=== PATIENT | female | born 1980 | race Caucasian/White ===

== ENCOUNTER 2022-10-23 16:02 | Emergency (ER) | payer BC ==
[2022-10-23] MEDS ORDERED: Acetaminophen 500 MG TAB ONE (20:18)
[2022-10-23 20:28] LABS: #Basophils 0.1 10x3/uL (0.0-0.2); #Eosinphils 0.1 10x3/uL (0.0-0.5); #Monocytes 0.4 10x3/uL (0.0-1.1); #Neutrophils 7.4 10x3/uL (1.5-8.4); %Basophils 0.5 % (0.0-2.0); %Eosinophils 0.7 % (0.0-6.0); %Lymphocytes 24.2 % (18.0-47.0); %Monocytes 3.8 % (0.0-10.0); %Neutrophils 70.4 % (40.0-75.0); Hematocrit 37.2 % (34.9-44.5); Hemoglobin 12.5 g/dL (12.0-15.5); Mean Corpuscular HGB CONC 33.6 g/dL (32.0-36.0); Mean Corpuscular Volume 89.2 fl (81.6-98.3); Mean Platelet Volume 9.2 fl (7.4-10.4); Platelet Count 270 10x3/uL (150-450); RBC Distribution Width 12.6 % (11.5-14.5); Red Blood Cell (RBC) Count 4.17 10x6/uL (3.90-5.03); White Blood Cell (WBC) Count 10.5 10x3/uL (3.5-10.5)
[2022-10-23] MEDS ORDERED: Lidocaine 4% Patch TD SCH (20:30)
[2022-10-23 20:34] LABS: BHCG - Serum Negative (NEGATIVE); Pregs Control Background? CLEAR/WHITE (CLR/WHITE); Pregs Control Bar Appear? YES (CONTROL BAR)
[2022-10-23 20:40] LABS: ALT (SGPT) 35 U/L (8-55); AST (SGOT) 19 U/L (5-34); Albumin 4.2 g/dL (3.5-5.0); Alkaline Phosphatase 53 U/L (40-110); Anion Gap 15 mmol/L (10-20); BUN (Urea Nitrogen) 16 mg/dL (7.0-18.7); Bilirubin, Total 0.3 mg/dL (0.2-1.2); CK (CPK) 45 U/L (29-168); Calc. Creatinine Clearance 0 mL/min (70-130); Calcium 9.2 mg/dL (7.8-10.44); Carbon Dioxide 28 mmol/L (22-29); Chloride 101 mmol/L (98-107); Estimated GFR 106; Globulin 2.8 g/dL (2.4-3.5); Glucose 130 mg/dL (70-105); Potassium 3.7 mmol/L (3.5-5.1); Sodium 140 mmol/L (136-145)
[2022-10-23 22:25] LABS: Bilirubin Neg (Negative); Blood, Urine Negative (Negative); Clarity Clear (Clear); Glucose, Urine (Dipstick) Normal (Negative); Ketone, Urine Negative (Negative); Leukocyte Negative (Negative); Nitrite Negative (Negative); Protein, Urine (Dipstick) Negative (Neg-Trace); Urobilinogen Normal mg/dL (Less than 2)
[2022-10-23 22:34] LABS: Bacteria/HPF None Seen HPF (None Seen); CAUTI Indications for Culture Pelvic or flank pain; RBC/HPF None Seen HPF (0-3); Squamous Epithelial 0-3 HPF (0-3); WBC/HPF None Seen HPF (0-3)
[2022-10-23 22:36] LABS: Urine Culture Reflex No No
[2022-10-23] MEDS ORDERED: fentaNYL 50 mcg/mL 1 mL Vial ONE (22:45)
== END 2022-10-23 22:03 | disposition home or self-care (01) ==
LOC: CSHERS 16:02
DX: M54.31 Sciatica, right side (principal); E78.5 Hyperlipidemia, unspecified; I10 Essential (primary) hypertension; F17.210 Nicotine dependence, cigarettes, uncomplicated
CPT/HCPCS: 36415; 80053; 81001; 82550; 84703; 85025; 96374; J3010

== ENCOUNTER 2022-11-19 08:12 | Outpatient (CLI) | payer BC | END 2022-11-19 08:13 | disposition home or self-care (01) | LOC: CSHLAB 08:12 | PROVIDERS: ATTEND Obstetrics & Gynecology | DX: Z01.818 Encounter for other preprocedural examination (principal) | CPT/HCPCS: 80048; 84703; 85027; 86850; 86900; 86901; 93005; 93010 ==

== ENCOUNTER 2022-11-21 08:33 | Day surgery (SDC) | payer BC ==
[2022-11-19 09:08] VITALS: BMI 31.8
[2022-11-19 10:35] LABS: BHCG - Serum Negative (NEGATIVE); Pregs Control Background? CLEAR/WHITE (CLR/WHITE); Pregs Control Bar Appear? YES (CONTROL BAR)
[2022-11-19 10:39] LABS: Anion Gap 11 mmol/L (10-20); BUN (Urea Nitrogen) 17 mg/dL (7.0-18.7); Calc. Creatinine Clearance 0 mL/min (70-130); Calcium 9.2 mg/dL (7.8-10.44); Carbon Dioxide 29 mmol/L (22-29); Chloride 104 mmol/L (98-107); Estimated GFR 108; Glucose 98 mg/dL (70-105); Potassium 3.9 mmol/L (3.5-5.1); Sodium 140 mmol/L (136-145)
[2022-11-19 10:41] LABS: Hematocrit 38.1 % (34.9-44.5); Hemoglobin 12.6 g/dL (12.0-15.5); Mean Corpuscular HGB CONC 33.1 g/dL (32.0-36.0); Mean Corpuscular Hemoglobin 29.6 pg (27.0-33.0); Mean Corpuscular Volume 89.4 fl (81.6-98.3); Mean Platelet Volume 9.3 fl (7.4-10.4); Platelet Count 275 10x3/uL (150-450); RBC Distribution Width 12.4 % (11.5-14.5); Red Blood Cell (RBC) Count 4.26 10x6/uL (3.90-5.03)
[2022-11-21] MEDS ORDERED: CeleCOXIB 100 MG CAP ONE (08:44)
[2022-11-21] MEDS ORDERED: Gabapentin 300 MG CAP ONE (08:45)
[2022-11-21] MEDS ORDERED: Famotidine/PF 20 mg/2ml Vial ONE (08:45)
[2022-11-21] MEDS ORDERED: Scopolamine 1.5 mg/72 hour Patch ONE (10:03)
[2022-11-21] MEDS ORDERED: Acetaminophen 500 MG TAB ONE ×2 (10:03→10:08)
[2022-11-21] MEDS ORDERED: EPINEPHrine 1 MG/ML VIAL ONE (10:11)
[2022-11-21] MEDS ORDERED: Glycopyrrolate 0.2 MG/ML 5 ML SYRINGE ONE (10:12)
[2022-11-21] MEDS ORDERED: Bupivacaine PF 0.5% 30 ML VIAL ONE (10:12)
[2022-11-21] MEDS ORDERED: PROPOFOL 20 ML ONE (10:12)
[2022-11-21] MEDS ORDERED: Dexamethasone 20 MG/5 ML VIAL ONE (10:12)
[2022-11-21] MEDS ORDERED: Ondansetron PF 4 MG/2 ML Vial ONE (10:12)
[2022-11-21] MEDS ORDERED: Lidocaine 1% PF 5 ML VIAL ONE (10:12)
[2022-11-21] MEDS ORDERED: CEFAZOLIN 2 GM VIAL ONE (10:12)
[2022-11-21] MEDS ORDERED: Rocuronium Bromide 10 MG/ML (10ML VIAL) ONE (10:12)
[2022-11-21] MEDS ORDERED: Midazolam HCl 2 mg/2 ml Vial ONE (10:12)
[2022-11-21] MEDS ORDERED: Fentanyl 250 MCG/5 ML VIAL ONE (10:12)
[2022-11-21] MEDS ORDERED: oxyCODONE 5 MG TAB ONE (12:58)
== END 2022-11-21 13:55 | disposition home or self-care (01) ==
LOC: CSHSDC 08:33
PROVIDERS: ATTEND Obstetrics & Gynecology
PROC: 0UB54ZZ Excision of Right Fallopian Tube, Percutaneous Endoscopic Approach (ICD-10-PCS; principal; 2022-11-21)
PROC: 0UB04ZZ Excision of Right Ovary, Percutaneous Endoscopic Approach (ICD-10-PCS; principal; 2022-11-21)
DX: D27.0 Benign neoplasm of right ovary (principal); N80.111 Superficial endometriosis of right ovary; N70.11 Chronic salpingitis; M54.50 Low back pain, unspecified; G89.29 Other chronic pain; F17.200 Nicotine dependence, unspecified, uncomplicated; E78.5 Hyperlipidemia, unspecified; I10 Essential (primary) hypertension; E11.9 Type 2 diabetes mellitus without complications; F41.8 Other specified anxiety disorders; Z79.899 Other long term (current) drug therapy; Z88.1 Allergy status to other antibiotic agents; Z88.5 Allergy status to narcotic agent; Z98.84 Bariatric surgery status
CPT/HCPCS: 36415; 80048; 84703; 85027; 86850; 86900; 86901; 88305; 88307; J0171; J1100; J2250; J2405; J2704; J3010; S0020; S0028

== ENCOUNTER 2024-09-18 08:12 | Outpatient (CLI) | payer BC | END 2024-09-18 08:13 | disposition home or self-care (01) | LOC: CSHSLEEP 08:12 | PROVIDERS: ATTEND Family Medicine | DX: G47.33 Obstructive sleep apnea (adult) (pediatric) (principal); R53.83 Other fatigue; R06.83 Snoring | CPT/HCPCS: 95811 ==